=== PATIENT | female | born 1995 | race Caucasian/White ===

== ENCOUNTER 2022-04-10 18:24 | Emergency (ER) | payer OTHER ==
[2022-04-10 18:37] VITALS: BP 102/66; PULSE 64; RESP 15; TEMP 98.9; BMI 21.4
[2022-04-10 20:16] LABS: HEMATOCRIT 38.2 % (32.4-45.2); HEMOGLOBIN 13.5 G/dL (10.7-15.3); MCH 31.4 pg (25.7-33.7); MCHC 35.3 g/dl (32.0-36.0); PLATELET COUNT 271.4 10^3/uL (134-434); RBC 4.29 10^6/uL (3.60-5.2); RDW 13.1 % (11.6-15.6); WHITE BLOOD COUNT 6.4 10^3/uL (4.0-10.8)
[2022-04-10 20:27] LABS: ALBUMIN 3.9 g/dl (3.4-5.0); BILIRUBIN,TOTAL 0.6 mg/dl (0.2-1); CREATININE 0.8 mg/dl (0.55-1.3); TOT PROT 7.1 g/dl (6.4-8.2)
[2022-04-10 20:36] LABS: PLATELET ESTIMATE ADEQUATE
== END 2022-04-10 20:05 | disposition home or self-care (01) ==
LOC: FER 18:24
DX: S61.032A Puncture wound without foreign body of left thumb without damage to nail, initial encounter (principal); W46.0XXA Contact with hypodermic needle, initial encounter
CPT/HCPCS: 36415; 80053; 85025; 86704; 86803; 87340; 87517; 99283-25